=== PATIENT | female | born 1985 | race Hispanic/Latino ===

== ENCOUNTER 2024-12-02 21:28 | Emergency (ER) | payer OTHER ==
[~2024-12-02] VITALS: Ht 154.9 cm; Wt 83.0 kg
[2024-12-02 21:30] VITALS: PULSE 101; RESP 18; TEMP 98.2
[2024-12-02] MEDS ORDERED: ALBUTEROL/IPRATROPIUM 3 ML NEB NEB PRN (22:00)
[2024-12-02] MEDS ORDERED: MAGNESIUM SULFATE 2GM/50ML 50 ML IV ONE (22:25)
[2024-12-02] MEDS ORDERED: METHYLPREDNISOLONE SOD SUCC 40 MG/ML VIAL 1ML ONE (22:26)
[2024-12-02] MEDS: MAGNESIUM SULFATE 2GM/50ML 50 ML IV ONE (22:34)
[2024-12-02] MEDS: ALBUTEROL/IPRATROPIUM 3 ML NEB NEB ONE ×2 (22:34→22:35)
[2024-12-02] MEDS: SODIUM CHLORIDE 0.9% 500ML 500 ML IV ONE ×2 (22:36)
[2024-12-02] MEDS: METHYLPREDNISOLONE SOD SUCC 125 MG/2ML VIAL IV ONE (22:45)
[2024-12-02] MEDS ORDERED: PREDNISONE50 MG PO (23:07)
[2024-12-03 00:19] VITALS: BP 124/68; PULSE 73; RESP 18; TEMP 98.4; O2SAT 4
== END 2024-12-02 23:55 | disposition home or self-care (01) ==
LOC: FSED 21:31
DX: R06.00 Dyspnea, unspecified (principal); B34.9 Viral infection, unspecified; J45.901 Unspecified asthma with (acute) exacerbation; R07.89 Other chest pain; R05.9 Cough, unspecified; R51.9 Headache, unspecified; M41.9 Scoliosis, unspecified; K90.0 Celiac disease; Z11.52 Encounter for screening for COVID-19; R94.31 Abnormal electrocardiogram [ECG] [EKG]
CPT/HCPCS: 93005; 99283; J2919 ×2; J3475; J7040

== ENCOUNTER 2025-04-07 20:10 | Emergency (ER) | payer OTHER ==
[~2025-04-07] VITALS: Ht 154.9 cm; Wt 83.0 kg
[~2025-04-07 20:10] MED LIST: PREDNISONE50 MG PO
[2025-04-07 20:15] VITALS: PULSE 86; RESP 19; TEMP 98.7
[2025-04-07] MEDS: KETOROLAC TROMETHAMINE 30 MG/ML VIAL IV STA (21:07)
[2025-04-07 22:17] VITALS: BP 143/80; O2SAT 97
== END 2025-04-07 22:23 | disposition home or self-care (01) ==
LOC: FSED 20:41
DX: R06.02 Shortness of breath (principal); R07.89 Other chest pain; D75.839 Thrombocytosis, unspecified; M41.9 Scoliosis, unspecified; R94.31 Abnormal electrocardiogram [ECG] [EKG]
CPT/HCPCS: 71046; 80053; 81003; 81025; 84484; 85025; 85379; 99284; J1885